=== PATIENT | male | born 1980 | race Caucasian/White ===

== ENCOUNTER 2016-10-02 14:03 | Emergency (ER) | payer MEDICAID ==
[2016-10-02 15:57] LABS: BASO % 0.7 % (0.0-1.0); EOS % 1.2 % (0.0-3.0); LARGE UNSTAINED CELL # 0.1 K/mm3 (0.0-0.4); LARGE UNSTAINED CELL % 2.8 % (0.0-4.0); LYMPH # 0.9 K/mm3 (1.5-4.5); LYMPH % 22.2 % (24.0-44.0); MEAN CORPUSCULAR HEMOGLOBIN 29.7 pg (27.0-33.0); MEAN CORPUSCULAR HGB CONC 35.3 g/dl (32.0-36.5); MEAN CORPUSCULAR VOLUME 84.1 fl (80.0-96.0); MONO # 0.2 K/mm3 (0.0-0.8); MONO % 6.1 % (0.0-5.0); NEUTROPHILS # 2.7 K/mm3 (1.8-7.7); NEUTROPHILS % 67.1 % (36.0-66.0); PLATELET COUNT, AUTOMATED 221 k/mm3 (150-450); RED CELL DISTRIBUTION WIDTH 12.1 % (11.5-14.5)
[2016-10-02 16:13] LABS: ANION GAP 10 MEQ/L (8-16); BLOOD UREA NITROGEN 17 MG/DL (7-18); CALCIUM LEVEL 9.3 MG/DL (8.5-10.1); CARBON DIOXIDE LEVEL 30 MEQ/L (21-32); CHLORIDE LEVEL 103 MEQ/L (98-107); CREATININE FOR GFR 1.14 MG/DL (0.70-1.30); GLOMERULAR FILTRATION RATE > 60.0 (>60); GLUCOSE, FASTING 99 MG/DL (70-105); POTASSIUM SERUM 3.7 MEQ/L (3.5-5.1); SODIUM LEVEL 143 MEQ/L (136-145)
--- NOTE | 2016-10-02 17:10 | EDDOCDS ---
Physician Documentation [facility] Name: Shantanu Dixon Age: 36 yrs Sex: Male : 1980 Arrival Date: 10/02/2016 Time: 14:03 Bed 5 Private MD: Unknown Pcp Disposition: 10/02 16:50 I have independently interviewed and examined the patient, and I agree with the pc investigation, diagnosis and treatment plan as documented by the Resident. Disposition: 10/02/16 16:48 Patient has left against medical advice. Impression: Altered mental status, unspecified. - Patients states they are going to Home/Self Care. - Condition is Unchanged. - Discharge Instructions: Confusion, AMA. Medication Reconciliation, Local Pharmacy Hours form. Follow up: [facility], [facility]; When: Call to arrange an appointment; Reason: Continuance of care. - Problem is new. - Symptoms are unchanged. Historical: - Allergies: Vyvanse (made him feel confused); - Home Meds: 1. Suboxone 8-2 mg SL subl 1 tab once daily 2. adderall 20mg twice a day 3. Wellbutrin 300mg Oral daily 4. levothyroxine 75 mcg oral cap once daily - PMHx: Substance Abuse; Thyroid problem; ADHD; - PSHx: none; - Social history: Smoking status: Patient states was never smoker of tobacco. No barriers to communication noted, The patient speaks fluent Danish, Speaks appropriately for age. - Family history: Not pertinent. - : The pt / caregiver states he / she is not on anticoagulants. Home medication list is obtained from the patient. - Exposure Risk Screening:: None identified. Vital Signs: 14:06 BP 159 / 93; Pulse 71; Resp 20; Temp 95.8; Pulse Ox 99% ; Weight 106.59 kg / 234.99 cmb lbs; Height 6 ft. 0 in. (182.88 cm); 14:06 Body Mass Index 31.87 (106.59 kg, 182.88 cm) cmb MDM: 15:25 CT Head Without Contrast Ordered. EDMS 15:25 CBC with Diff Ordered. EDMS 15:25 BMP Ordered. EDMS 15:25 Drug Eval Toxicology ED Only Ordered. EDMS 15:31 THYROID STIMULATING HORMONE Ordered. EDMS 15:39 Financial registration complete. gjb 16:13 CBC with Diff Reviewed. jo4 16:28 BMP Reviewed. jo4 16:29 THYROID STIMULATING HORMONE Reviewed. jo4 16:36 [facility] Payment Agreement was scanned into [employer] and attached to record. luke Signatures: Dispatcher [employer] EDMS Matthew Coy MD MD pc Michelson, Staci, RN RN Andra Johnson RN RN Jenae Solorzano Jane, DO DO jo4 The chart was reviewed and I authenticate all verbal orders and agree with the evaluation and treatment provided.Corrections: (The following items were deleted from the chart) 14:17 14:14 Allergies: no known allergies; srm srm 14:17 14:14 Home Meds: Wellbutrin Oral daily; srm srm 14:17 14:14 Home Meds: Levothyroxine Oral once daily; srm srm 15:31 15:27 THYROID STIMULATING HORMONE+LAB ordered. EDMS EDMS Attachments: 16:36 [facility] Payment Agreement gjrichie MTDD
--- NOTE | 2016-10-02 17:10 | EDDOCDS ---
Nurse's Notes [facility] Name: Shantanu Dixon Age: 36 yrs Sex: Male : 1980 Arrival Date: 10/02/2016 Time: 14:03 Bed 5 Private MD: Unknown Pcp Diagnosis: Altered mental status, unspecified Presentation: 10/02 14:08 Presenting complaint: Patient states: i feel weak, confused, shakey. off and on since [facility] last week. recently started on adderral. confusion worse since starting that [place] got [place] due to confusion. urine dark in color. pt states hes been having blood in urine and stool for 5 months. syncope at the gym a couple of months ago and was supposed to have EEG but hasnt had f/u. chest pain and SOB for past month- taking a deep breath is difficult. Mental Health Triage Level: Level 1- Pt displays no suicidal or homicidal ideations and does not appear to be a danger to self or others. Adult Sepsis Screening: Patient has new or worsening altered mentation (1 point). Patient's respiratory rate is less than 22. Systolic blood pressure is greater than 100. Patient has a qSOFA score of 0- Negative Sepsis Screen. Suicide/Homicide risk assessment- Patient denies SI and HI but presents with another emotional, behavioral or other mental health complaint. The patient reports that he/she has a recent or current history of substance abuse. Status: Patient is not a patient services technician or dependent. Transition of care: patient was not received from another setting of care. 14:08 Acuity: NICKIE Level 3 [facility] 14:08 Method Of Arrival: Walkin/Carried/Asstd [facility] 14:17 Presenting complaint: Patient states: headaches every day for months. [facility] Triage Assessment: 14:17 General: Appears in no apparent distress, Behavior is appropriate for age, cooperative. srm Pain: Pain currently is 7 out of 10 on a pain scale. Historical: - Allergies: Vyvanse (made him feel confused); - Home Meds: 1. Suboxone 8-2 mg SL subl 1 tab once daily 2. adderall 20mg twice a day 3. Wellbutrin 300mg Oral daily 4. levothyroxine 75 mcg oral cap once daily - PMHx: Substance Abuse; Thyroid problem; ADHD; - PSHx: none; - Social history: Smoking status: Patient states was never smoker of tobacco. No barriers to communication noted, The patient speaks fluent Bulgarian, Speaks appropriately for age. - Family history: Not pertinent. - : The pt / caregiver states he / she is not on anticoagulants. Home medication list is obtained from the patient. - Exposure Risk Screening:: None identified. Screenin:50 Screening information is obtained from the patient. Fall risk: No risks identified. mk4 Assistance ADL's: requires no assistance with activities of daily living. Abuse/DV Screen: The patient / caregiver reports he/she is: not in a situation that causes fear, pain or injury. Nutritional screening: No deficits noted. Advance Directives: Currently, there is no health care proxy. There is no active DNR order. There is no living will. There is no Power of Marketing Assistant Manager. Advance directive information has not previously [facility]. Further advance directive information is declined. home support is adequate. Assessment: 14:45 General: Appears in no apparent distress, Behavior is anxious. mk4 15:50 General: Appears in no apparent distress, pt unable to void at this time. Respiratory: mk4 Airway is patent Respiratory effort is even, unlabored, Respiratory pattern is regular. 16:01 General: Appears in no apparent distress, comfortable, Behavior is cooperative. ml6 Neurological: Level of Consciousness is awake, alert. 16:03 Pain: Denies pain. ml6 16:03 Cardiovascular: Chest pain is denied. ml6 17:08 General: Appears in no apparent distress, Behavior is flat, pt states he is unable to mk4 urinate and would like to leave discussed with and pt leaving ama. Vital Signs: 14:06 BP 159 / 93; Pulse 71; Resp 20; Temp 95.8; Pulse Ox 99% ; Weight 106.59 kg; Height 6 cmb ft. 0 in. (182.88 cm); 14:06 Body Mass Index 31.87 (106.59 kg, 182.88 cm) [facility] Vitals: 14:06 Log In Time: October 02, 2016 at 14:03. [facility] ED Course: 14:05 Patient visited by Isabela Jules. b 14:05 Unknown Pcp is Private Physician. b 14:05 Patient moved to Waiting b 14:07 RN notified that patient meets Red Flag criteria. b 14:12 Triage Initiated srm 14:20 Patient moved to 5 srm 14:27 [facility] jo4 14:27 Matthew Coy MD is Attending Physician. jo4 14:35 Patient visited by Celi Baer DO. jo4 15:07 Patient visited by Andra Petersen RN. mk4 15:35 THYROID STIMULATING HORMONE Sent. ar3 15:35 BMP Sent. ar3 15:35 CBC with Diff Sent. ar3 15:39 Patient visited by Andra Petersen RN. mk4 15:50 The patient / caregiver is instructed regarding the plan of care and ED course. mk4 15:50 No IV's were initiated during this patient's visit. No procedures done that require mk4 assistance. 16:21 Patient visited by Andra Petersen RN. mk4 16:36 [facility] Payment Agreement was scanned into [place] and attached to record. gjb 16:39 Patient name changed from Shantanu\S\\S\Neversink\S\ to Shantanu\S\ \S\Neversink. EDMS 16:46 [facility] is Referral Physician. jo4 Order Results: Lab Order: CBC with Diff; SPEC'M 10/02/16 15:34 Test: WHITE BLOOD COUNT; Value: 4.0; Range: 4.0-10.0; Units: K/mm3; Status: F Test: RED BLOOD COUNT; Value: 4.80; Range: 4.30-6.10; Units: M/mm3; Status: F Test: HEMOGLOBIN; Value: 14.3; Range: 14.0-18.0; Units: g/dl; Status: F Test: HEMATOCRIT; Value: 40.4; Range: 42.0-52.0; Abnormal: Below low normal; Units: %; Status: F Test: MEAN CORPUSCULAR VOLUME; Value: 84.1; Range: 80.0-96.0; Units: fl; Status: F Test: MEAN CORPUSCULAR HEMOGLOBIN; Value: 29.7; Range: 27.0-33.0; Units: pg; Status: F Test: MEAN CORPUSCULAR HGB CONC; Value: 35.3; Range: 32.0-36.5; Units: g/dl; Status: F Test: RED CELL DISTRIBUTION WIDTH; Value: 12.1; Range: 11.5-14.5; Units: %; Status: F Test: PLATELET COUNT, AUTOMATED; Value: 221; Range: 150-450; Units: k/mm3; Status: F Test: NEUTROPHILS %; Value: 67.1; Range: 36.0-66.0; Abnormal: Above high normal; Units: %; Status: F Test: LYMPH %; Value: 22.2; Range: 24.0-44.0; Abnormal: Below low normal; Units: %; Status: F Test: MONO %; Value: 6.1; Range: 0.0-5.0; Abnormal: Above high normal; Units: %; Status: F Test: EOS %; Value: 1.2; Range: 0.0-3.0; Units: %; Status: F Test: BASO %; Value: 0.7; Range: 0.0-1.0; Units: %; Status: F Test: LARGE UNSTAINED CELL %; Value: 2.8; Range: 0.0-4.0; Units: %; Status: F Test: NEUTROPHILS #; Value: 2.7; Range: 1.8-7.7; Units: K/mm3; Status: F Test: LYMPH #; Value: 0.9; Range: 1.5-4.5; Abnormal: Below low normal; Units: K/mm3; Status: F Test: MONO #; Value: 0.2; Range: 0.0-0.8; Units: K/mm3; Status: F Test: EOS #; Value: 0.0; Range: 0.0-0.50; Units: K/mm3; Status: F Test: BASO #; Value: 0.0; Range: 0.0-0.2; Units: K/mm3; Status: F Test: LARGE UNSTAINED CELL #; Value: 0.1; Range: 0.0-0.4; Units: K/mm3; Status: F Lab Order: [facility]; SPEC'M 10/02/16 15:34 Test: GLUCOSE, FASTING; Value: 99; Range: 70-105; Units: MG/DL; Status: F Test: BLOOD UREA NITROGEN; Value: 17; Range: 7-18; Units: MG/DL; Status: F Test: CREATININE FOR GFR; Value: 1.14; Range: 0.70-1.30; Units: MG/DL; Status: F Test: GLOMERULAR FILTRATION RATE; Value: > 60.0; Range: >60; Status: F Test: SODIUM LEVEL; Value: 143; Range: 136-145; Units: MEQ/L; Status: F Test: POTASSIUM SERUM; Value: 3.7; Range: 3.5-5.1; Units: MEQ/L; Status: F Test: CHLORIDE LEVEL; Value: 103; Range: 98-107; Units: MEQ/L; Status: F Test: CARBON DIOXIDE LEVEL; Value: 30; Range: 21-32; Units: MEQ/L; Status: F Test: ANION GAP; Value: 10; Range: 8-16; Units: MEQ/L; Status: F Test: CALCIUM LEVEL; Value: 9.3; Range: 8.5-10.1; Units: MG/DL; Status: F Test Note: ; Units are mL/min/1.73 m2 Chronic Kidney Disease Staging per NKF: Stage I & II GFR >=60 Normal to Mildly Decreased Stage III GFR 30-59 Moderately Decreased Stage IV GFR 15-29 Severely Decreased Stage V GFR <15 Very Little GFR Left ESRD GFR <15 on BEAUTY ARTIST Lab Order: THYROID STIMULATING HORMONE; SPEC'M 10/02/16 15:34 Test: THYROID STIMULATING HORMONE; Value: 2.180; Range: 0.358-3.740; Units: uIU/ML; Status: F Outcome: 16:48 Patient left against medical advice. jo4 17:08 Discharge Assessment: Patient awake, alert and oriented x 3. No cognitive and/or mk4 functional deficits noted. Patient verbalized understanding of disposition instructions. Patient awake and alert. patient administered narcotics - no. The following High Risk Discharge criteria are identified: None. Discharged to home ambulatory, with parent. The patient is leaving AMA: Left before signing form, Notification of AMA status is made to the charge nurse, the social media content manager, the ED attending physician. Condition: stable. CT Study completed. Property sent home with patient. 17:09 Patient left the ED. mk4 Signatures: Dispatcher [facility] EDMS Padmini Disla RN RN srm Lowe, Matthew, RN RN ml6 Tahira Ernst, ENGINEER STEAM ENGINEER STEAM ar3 Isabela Jules Margaret, RN RN mk4 Jenae Escamilla Jane, DO DO jo4 Corrections: (The following items were deleted from the chart) 14:17 14:14 Allergies: no known allergies; srm srm 14:17 14:14 Home Meds: Wellbutrin Oral daily; srm srm 14:17 14:14 Home Meds: Levothyroxine Oral once daily; srm srm MTDD
--- NOTE | 2016-10-02 23:15 | REP ---
CT brain without contrast 10/02/2016 Indication: Confusion Comparison: None Findings: The ventricles are of normal size and configuration. There is no intracranial hemorrhage or extra-axial fluid collection. There is no evidence of cerebral atrophy. There is no midline shift or mass effect. The skull is without fracture. Visualized portions of the paranasal sinuses and mastoid sinuses are clear. Impression 1. Negative CT brain without contrast Signed by Gladys Skinner MD 10/02/2016 11:07 P
--- NOTE | 2016-10-04 18:10 | EDDOCDS ---
Nurse's Notes [facility] Name: Shantanu Dixon Age: 36 yrs Sex: Male : 1980 Arrival Date: 10/02/2016 Time: 14:03 Bed 5 Private MD: Unknown Pcp Diagnosis: Altered mental status, unspecified Presentation: 10/02 14:08 Presenting complaint: Patient states: i feel weak, confused, shakey. off and on since [facility] last week. recently started on adderral. confusion worse since starting that [place] got [place] due to confusion. urine dark in color. pt states hes been having blood in urine and stool for 5 months. syncope at the gym a couple of months ago and was supposed to have EEG but hasnt had f/u. chest pain and SOB for past month- taking a deep breath is difficult. Mental Health Triage Level: Level 1- Pt displays no suicidal or homicidal ideations and does not appear to be a danger to self or others. Adult Sepsis Screening: Patient has new or worsening altered mentation (1 point). Patient's respiratory rate is less than 22. Systolic blood pressure is greater than 100. Patient has a qSOFA score of 0- Negative Sepsis Screen. Suicide/Homicide risk assessment- Patient denies SI and HI but presents with another emotional, behavioral or other mental health complaint. The patient reports that he/she has a recent or current history of substance abuse. Status: Patient is not a account service associate or dependent. Transition of care: patient was not received from another setting of care. 14:08 Acuity: NICKIE Level 3 [facility] 14:08 Method Of Arrival: Walkin/Carried/Asstd [facility] 14:17 Presenting complaint: Patient states: headaches every day for months. [facility] Triage Assessment: 14:17 General: Appears in no apparent distress, Behavior is appropriate for age, cooperative. srm Pain: Pain currently is 7 out of 10 on a pain scale. Historical: - Allergies: Vyvanse (made him feel confused); - Home Meds: 1. Suboxone 8-2 mg SL subl 1 tab once daily 2. adderall 20mg twice a day 3. Wellbutrin 300mg Oral daily 4. levothyroxine 75 mcg oral cap once daily - PMHx: Substance Abuse; Thyroid problem; ADHD; - PSHx: none; - Social history: Smoking status: Patient states was never smoker of tobacco. No barriers to communication noted, The patient speaks fluent British, Speaks appropriately for age. - Family history: Not pertinent. - : The pt / caregiver states he / she is not on anticoagulants. Home medication list is obtained from the patient. - Exposure Risk Screening:: None identified. Screenin:50 Screening information is obtained from the patient. Fall risk: No risks identified. mk4 Assistance ADL's: requires no assistance with activities of daily living. Abuse/DV Screen: The patient / caregiver reports he/she is: not in a situation that causes fear, pain or injury. Nutritional screening: No deficits noted. Advance Directives: Currently, there is no health care proxy. There is no active DNR order. There is no living will. There is no Power of Chemic Mangler. Advance directive information has not previously been placed in an [facility] medical record. Further advance directive information is declined. home support is adequate. Assessment: 14:45 General: Appears in no apparent distress, Behavior is anxious. mk4 15:50 General: Appears in no apparent distress, pt unable to void at this time. Respiratory: mk4 Airway is patent Respiratory effort is even, unlabored, Respiratory pattern is regular. 16:01 General: Appears in no apparent distress, comfortable, Behavior is cooperative. ml6 Neurological: Level of Consciousness is awake, alert. 16:03 Pain: Denies pain. ml6 16:03 Cardiovascular: Chest pain is denied. ml6 17:08 General: Appears in no apparent distress, Behavior is flat, pt states he is unable to mk4 urinate and would like to leave discussed with and pt leaving ama. Vital Signs: 14:06 BP 159 / 93; Pulse 71; Resp 20; Temp 95.8; Pulse Ox 99% ; Weight 106.59 kg; Height 6 cmb ft. 0 in. (182.88 cm); 14:06 Body Mass Index 31.87 (106.59 kg, 182.88 cm) [facility] Vitals: 14:06 Log In Time: October 02, 2016 at 14:03. [facility] ED Course: 14:05 Patient visited by Isabela Jules. b 14:05 Unknown Pcp is Private Physician. b 14:05 Patient moved to Waiting b 14:07 RN notified that patient meets Red Flag criteria. b 14:12 Triage Initiated srm 14:20 Patient moved to 5 srm 14:27 [facility] jo4 14:27 Matthew Coy MD is Attending Physician. jo4 14:35 Patient visited by Celi Baer DO. jo4 15:07 Patient visited by Andra Petersen RN. mk4 15:35 THYROID STIMULATING HORMONE Sent. ar3 15:35 BMP Sent. ar3 15:35 CBC with Diff Sent. ar3 15:39 Patient visited by Andra Petersen RN. mk4 15:50 The patient / caregiver is instructed regarding the plan of care and ED course. mk4 15:50 No IV's were initiated during this patient's visit. No procedures done that require mk4 assistance. 16:21 Patient visited by Andra Petersen RN. mk4 16:36 [id number] Payment Agreement was scanned into [employer] and attached to record. gjb 16:39 Patient name changed from Shantanu\S\\S\Waldron\S\ to Shantanu\S\ \S\Waldron. EDMS 16:46 [facility] is Referral Physician. jo4 10/03 00:15 CT Head Without Contrast Returned. EDMS 09:10 T-Sheet-- Draft Copy was scanned into [employer] and attached to record. gb Order Results: Lab Order: CBC with Diff; SPEC'M 10/02/16 15:34 Test: WHITE BLOOD COUNT; Value: 4.0; Range: 4.0-10.0; Units: K/mm3; Status: F Test: RED BLOOD COUNT; Value: 4.80; Range: 4.30-6.10; Units: M/mm3; Status: F Test: HEMOGLOBIN; Value: 14.3; Range: 14.0-18.0; Units: g/dl; Status: F Test: HEMATOCRIT; Value: 40.4; Range: 42.0-52.0; Abnormal: Below low normal; Units: %; Status: F Test: MEAN CORPUSCULAR VOLUME; Value: 84.1; Range: 80.0-96.0; Units: fl; Status: F Test: MEAN CORPUSCULAR HEMOGLOBIN; Value: 29.7; Range: 27.0-33.0; Units: pg; Status: F Test: MEAN CORPUSCULAR HGB CONC; Value: 35.3; Range: 32.0-36.5; Units: g/dl; Status: F Test: RED CELL DISTRIBUTION WIDTH; Value: 12.1; Range: 11.5-14.5; Units: %; Status: F Test: PLATELET COUNT, AUTOMATED; Value: 221; Range: 150-450; Units: k/mm3; Status: F Test: NEUTROPHILS %; Value: 67.1; Range: 36.0-66.0; Abnormal: Above high normal; Units: %; Status: F Test: LYMPH %; Value: 22.2; Range: 24.0-44.0; Abnormal: Below low normal; Units: %; Status: F Test: MONO %; Value: 6.1; Range: 0.0-5.0; Abnormal: Above high normal; Units: %; Status: F Test: EOS %; Value: 1.2; Range: 0.0-3.0; Units: %; Status: F Test: BASO %; Value: 0.7; Range: 0.0-1.0; Units: %; Status: F Test: LARGE UNSTAINED CELL %; Value: 2.8; Range: 0.0-4.0; Units: %; Status: F Test: NEUTROPHILS #; Value: 2.7; Range: 1.8-7.7; Units: K/mm3; Status: F Test: LYMPH #; Value: 0.9; Range: 1.5-4.5; Abnormal: Below low normal; Units: K/mm3; Status: F Test: MONO #; Value: 0.2; Range: 0.0-0.8; Units: K/mm3; Status: F Test: EOS #; Value: 0.0; Range: 0.0-0.50; Units: K/mm3; Status: F Test: BASO #; Value: 0.0; Range: 0.0-0.2; Units: K/mm3; Status: F Test: LARGE UNSTAINED CELL #; Value: 0.1; Range: 0.0-0.4; Units: K/mm3; Status: F Lab Order: [facility]; SPEC'M 10/02/16 15:34 Test: GLUCOSE, FASTING; Value: 99; Range: 70-105; Units: MG/DL; Status: F Test: BLOOD UREA NITROGEN; Value: 17; Range: 7-18; Units: MG/DL; Status: F Test: CREATININE FOR GFR; Value: 1.14; Range: 0.70-1.30; Units: MG/DL; Status: F Test: GLOMERULAR FILTRATION RATE; Value: > 60.0; Range: >60; Status: F Test: SODIUM LEVEL; Value: 143; Range: 136-145; Units: MEQ/L; Status: F Test: POTASSIUM SERUM; Value: 3.7; Range: 3.5-5.1; Units: MEQ/L; Status: F Test: CHLORIDE LEVEL; Value: 103; Range: 98-107; Units: MEQ/L; Status: F Test: CARBON DIOXIDE LEVEL; Value: 30; Range: 21-32; Units: MEQ/L; Status: F Test: ANION GAP; Value: 10; Range: 8-16; Units: MEQ/L; Status: F Test: CALCIUM LEVEL; Value: 9.3; Range: 8.5-10.1; Units: MG/DL; Status: F Test Note: ; Units are mL/min/1.73 m2 Chronic Kidney Disease Staging per NKF: Stage I & II GFR >=60 Normal to Mildly Decreased Stage III GFR 30-59 Moderately Decreased Stage IV GFR 15-29 Severely Decreased Stage V GFR <15 Very Little GFR Left ESRD GFR <15 on ENGINEERING TECHNOLOGY INSTRUCTOR Lab Order: THYROID STIMULATING HORMONE; SPEC'M 10/02/16 15:34 Test: THYROID STIMULATING HORMONE; Value: 2.180; Range: 0.358-3.740; Units: uIU/ML; Status: F Radiology Order: CT Head Without Contrast Test: CT Head Without Contrast REASON FOR EXAMINATION: Confusion; CT brain without contrast 10/02/2016; ; Indication: Confusion; ; Comparison: None; ; Findings: The ventricles are of normal size and configuration. There is no; intracranial hemorrhage or extra-axial fluid collection. There is no evidence of; cerebral atrophy. There is no midline shift or mass effect.; ; The skull is without fracture. Visualized portions of the paranasal sinuses and; mastoid sinuses are clear.; ; Impression; 1. Negative CT brain without contrast; ; ; Signed by; Gladys Skinner MD 10/02/2016 11:07 P; Outcome: 10/02 16:48 Patient left against medical advice. jo4 17:08 Discharge Assessment: Patient awake, alert and oriented x 3. No cognitive and/or mk4 functional deficits noted. Patient verbalized understanding of disposition instructions. Patient awake and alert. patient administered narcotics - no. The following High Risk Discharge criteria are identified: None. Discharged to home ambulatory, with parent. The patient is leaving AMA: Left before signing form, Notification of AMA status is made to the charge nurse, the court worker, the ED attending physician. Condition: stable. CT Study completed. Property sent home with patient. 17:09 Patient left the ED. mk4 Signatures: Dispatcher [employer] EDMS Padmini Disla, RN RN srm Joanie Walton, Juan Reg Shawn Koch RN RN ml6 Tahira Ernst, EDUCATIONAL INSTITUTION PRESIDENT EDUCATIONAL INSTITUTION PRESIDENT ar3 Isabela Jules Margaret, RN RN mk4 Jenae Escamilla Jane, DO DO jo4 Corrections: (The following items were deleted from the chart) 14:17 14:14 Allergies: no known allergies; srm srm 14:17 14:14 Home Meds: Wellbutrin Oral daily; srm srm 14:17 14:14 Home Meds: Levothyroxine Oral once daily; srm srm Chart Complete MTDD
--- NOTE | 2016-10-04 18:10 | EDDOCDS ---
Physician Documentation [facility] Name: Shantanu Dixon Age: 36 yrs Sex: Male : 1980 Arrival Date: 10/02/2016 Time: 14:03 Bed 5 Private MD: Unknown Pcp Disposition: 10/02 16:50 I have independently interviewed and examined the patient, and I agree with the pc investigation, diagnosis and treatment plan as documented by the Resident. Disposition: 10/02/16 16:48 Patient has left against medical advice. Impression: Altered mental status, unspecified. - Patients states they are going to Home/Self Care. - Condition is Unchanged. - Discharge Instructions: Confusion, AMA. Medication Reconciliation, Local Pharmacy Hours form. Follow up: [facility], [facility]; When: Call to arrange an appointment; Reason: Continuance of care. - Problem is new. - Symptoms are unchanged. Historical: - Allergies: Vyvanse (made him feel confused); - Home Meds: 1. Suboxone 8-2 mg SL subl 1 tab once daily 2. adderall 20mg twice a day 3. Wellbutrin 300mg Oral daily 4. levothyroxine 75 mcg oral cap once daily - PMHx: Substance Abuse; Thyroid problem; ADHD; - PSHx: none; - Social history: Smoking status: Patient states was never smoker of tobacco. No barriers to communication noted, The patient speaks fluent Albanian, Speaks appropriately for age. - Family history: Not pertinent. - : The pt / caregiver states he / she is not on anticoagulants. Home medication list is obtained from the patient. - Exposure Risk Screening:: None identified. Vital Signs: 14:06 BP 159 / 93; Pulse 71; Resp 20; Temp 95.8; Pulse Ox 99% ; Weight 106.59 kg / 234.99 cmb lbs; Height 6 ft. 0 in. (182.88 cm); 14:06 Body Mass Index 31.87 (106.59 kg, 182.88 cm) cmb MDM: 15:25 CT Head Without Contrast Ordered. EDMS 15:25 CBC with Diff Ordered. EDMS 15:25 BMP Ordered. EDMS 15:25 Drug Eval Toxicology ED Only Ordered. EDMS 15:31 THYROID STIMULATING HORMONE Ordered. EDMS 15:39 Financial registration complete. gjb 16:13 CBC with Diff Reviewed. jo4 16:28 BMP Reviewed. jo4 16:29 THYROID STIMULATING HORMONE Reviewed. jo4 16:36 [facility] Payment Agreement was scanned into [employer] and attached to record. [facility] 10/03 09:10 T-Sheet-- Draft Copy was scanned into [employer] and attached to record. gb Signatures: Dispatcher [employer] EDMS Matthew Coy MD MD pc Michelson, Staci, RN RN [facility] Joanie Walton, Reg Reg Andra Petersen RN RN mk4 Beck, Gabriela [facility] Celi Baer DO DO jo4 The chart was reviewed and I authenticate all verbal orders and agree with the evaluation and treatment provided.Corrections: (The following items were deleted from the chart) 10/02 14:17 14:14 Allergies: no known allergies; srm srm 14:17 14:14 Home Meds: Wellbutrin Oral daily; srm srm 14:17 14:14 Home Meds: Levothyroxine Oral once daily; srm srm 15:31 15:27 THYROID STIMULATING HORMONE+LAB ordered. EDMS EDMS Attachments: 16:36 [facility] Payment Agreement [facility] 10/03 09:10 T-Sheet-- Draft Copy gb Chart Complete MTDD
--- NOTE | 2016-10-04 18:10 | EDDOCDS ---
Physician Documentation [facility] Name: Shantanu Dixon Age: 36 yrs Sex: Male : 1980 Arrival Date: 10/02/2016 Time: 14:03 Bed 5 Private MD: Unknown Pcp Disposition: 10/02 16:50 I have independently interviewed and examined the patient, and I agree with the pc investigation, diagnosis and treatment plan as documented by the Resident. Disposition: 10/02/16 16:48 Patient has left against medical advice. Impression: Altered mental status, unspecified. - Patients states they are going to Home/Self Care. - Condition is Unchanged. - Discharge Instructions: Confusion, AMA. Medication Reconciliation, Local Pharmacy Hours form. Follow up: [facility]; When: Call to arrange an appointment; Reason: Continuance of care. - Problem is new. - Symptoms are unchanged. Historical: - Allergies: Vyvanse (made him feel confused); - Home Meds: 1. Suboxone 8-2 mg SL subl 1 tab once daily 2. adderall 20mg twice a day 3. Wellbutrin 300mg Oral daily 4. levothyroxine 75 mcg oral cap once daily - PMHx: Substance Abuse; Thyroid problem; ADHD; - PSHx: none; - Social history: Smoking status: Patient states was never smoker of tobacco. No barriers to communication noted, The patient speaks fluent Urdu, Speaks appropriately for age. - Family history: Not pertinent. - : The pt / caregiver states he / she is not on anticoagulants. Home medication list is obtained from the patient. - Exposure Risk Screening:: None identified. Vital Signs: 14:06 BP 159 / 93; Pulse 71; Resp 20; Temp 95.8; Pulse Ox 99% ; Weight 106.59 kg / 234.99 cmb lbs; Height 6 ft. 0 in. (182.88 cm); 14:06 Body Mass Index 31.87 (106.59 kg, 182.88 cm) cmb MDM: 15:25 CT Head Without Contrast Ordered. EDMS 15:25 CBC with Diff Ordered. EDMS 15:25 BMP Ordered. EDMS 15:25 Drug Eval Toxicology ED Only Ordered. EDMS 15:31 THYROID STIMULATING HORMONE Ordered. EDMS 15:39 Financial registration complete. gjb 16:13 CBC with Diff Reviewed. jo4 16:28 BMP Reviewed. jo4 16:29 THYROID STIMULATING HORMONE Reviewed. jo4 16:36 [facility] Payment Agreement was scanned into [employer] and attached to record. [facility] 10/03 09:10 T-Sheet-- Draft Copy was scanned into [place] [employer] and attached to record. gb Signatures: Dispatcher [employer] EDMS Matthew Coy MD MD pc Michelson, Staci, RN RN [facility] Joanie Walton, Reg Reg Andra Petersen RN RN mk4 Beck, Gabriela [facility] Celi Baer DO DO jo4 The chart was reviewed and I authenticate all verbal orders and agree with the evaluation and treatment provided.Corrections: (The following items were deleted from the chart) 10/02 14:17 14:14 Allergies: no known allergies; srm srm 14:17 14:14 Home Meds: Wellbutrin Oral daily; srm srm 14:17 14:14 Home Meds: Levothyroxine Oral once daily; srm srm 15:31 15:27 THYROID STIMULATING HORMONE+LAB ordered. EDMS EDMS Attachments: 16:36 [facility] Payment Agreement [facility] 10/03 09:10 T-Sheet-- Draft Copy gb Chart Complete MTDD
== END 2016-10-02 17:09 | disposition home or self-care (01) ==
LOC: M ED 14:03
DX: R41.0 Disorientation, unspecified (principal); F19.10 Other psychoactive substance abuse, uncomplicated; E03.9 Hypothyroidism, unspecified; F90.9 Attention-deficit hyperactivity disorder, unspecified type; Z79.899 Other long term (current) drug therapy; Z88.8 Allergy status to other drugs, medicaments and biological substances

== ENCOUNTER 2019-02-17 17:29 | Emergency (ER) | payer MEDICAID ==
[~2019-02-17] VITALS: Ht 188 cm; Wt 102.5 kg
[2019-02-17 17:29] VITALS: BP 167/91
[2019-02-17] MEDS ORDERED: LEVO150T7 (17:47)
[2019-02-17] MEDS ORDERED: BUPR300T34 (17:47)
[2019-02-17] MEDS ORDERED: SUBO8MIS SL (17:47)
[2019-02-17] MEDS ORDERED: AMPH30CA (17:47)
== END 2019-02-17 19:26 | disposition left against medical advice (07) ==
LOC: M ED 17:29
DX: R51 Headache (principal); Z53.21 Procedure and treatment not carried out due to patient leaving prior to being seen by health care provider

== ENCOUNTER 2019-06-16 19:00 | Emergency (ER) | payer MEDICAID, OTHER ==
[~2019-06-16] VITALS: Ht 185.4 cm; Wt 94.5 kg
[~2019-06-16 19:00] MED LIST: AMPH30CA; BUPR300T34; LEVO150T7; SUBO8MIS SL
[2019-06-16] MEDS ORDERED: NS 1,000 ML IV ONE (19:30)
--- NOTE | 2019-06-16 20:00 | REP ---
Portable chest, 07:46 p.m., single AP view with the the patient sitting: There are no comparisons. The lung quintero are clear. The cardiac size is normal. The manolo, mediastinum, and skeletal structures are unremarkable. Impression: Negative portable chest. Electronically Signed by Sean Heredia MD 06/16/2019 07:51 P
[2019-06-16 20:03] LABS: BASO # 0.1 10^3/uL (0.0-0.2); BASO % 0.8 % (0.0-1.0); EOS % 0.5 % (0.0-3.0); HEMATOCRIT 47.9 % (42.0-52.0); HEMOGLOBIN 16.2 g/dl (13.5-17.5); LYMPH # 1.1 10^3/uL (1.5-5.0); LYMPH % 14.2 % (24.0-44.0); MEAN CORPUSCULAR HEMOGLOBIN 27.3 pg (27.0-33.0); MEAN CORPUSCULAR HGB CONC 33.8 g/dl (32.0-36.5); MEAN CORPUSCULAR VOLUME 80.8 fl (80.0-96.0); MONO # 0.9 10^3/uL (0.0-0.8); MONO % 11.3 % (0.0-5.0); NEUTROPHILS # 5.7 10^3/uL (1.5-8.5); NEUTROPHILS % 72.8 % (36.0-66.0); PLATELET COUNT, AUTOMATED 287 10^3/uL (150-450); RED BLOOD COUNT 5.93 10^6/uL (4.30-6.10); WHITE BLOOD COUNT 7.8 10^3/uL (4.0-10.0)
[2019-06-16 20:21] LABS: ALBUMIN 4.2 GM/DL (3.2-5.2); ALT/SGPT 42 U/L (12-78); BILIRUBIN,DIRECT < 0.1 MG/DL (0.0-0.2); BILIRUBIN,TOTAL 0.6 MG/DL (0.2-1.0); BLOOD UREA NITROGEN 17 MG/DL (7-18); CALCIUM LEVEL 9.7 MG/DL (8.5-10.1); CARBON DIOXIDE LEVEL 24 MEQ/L (21-32); CHLORIDE LEVEL 105 MEQ/L (98-107); CREATININE FOR GFR 1.44 MG/DL (0.70-1.30); GLOMERULAR FILTRATION RATE 58.8 (>60); GLUCOSE, FASTING 147 MG/DL (70-100); MAGNESIUM LEVEL 2.3 MG/DL (1.8-2.4); PHOSPHORUS LEVEL 2.4 MG/DL (2.5-4.9); POTASSIUM SERUM 5.2 MEQ/L (3.5-5.1); SODIUM LEVEL 138 MEQ/L (136-145); TOTAL PROTEIN 7.7 GM/DL (6.4-8.2)
[2019-06-16 21:45] LABS: AMPHETAMINES LEVEL URINE NEGATIVE (NEGATIVE); BARBITURATES URINE NEGATIVE (NEGATIVE); BENZODIAZEPINES URINE NEGATIVE (NEGATIVE); CANNABINOIDS URINE NEGATIVE (NEGATIVE); COCAINE METABOLITE URINE NEGATIVE (NEGATIVE); METHADONE URINE NEGATIVE (NEGATIVE); OPIATES URINE NEGATIVE (NEGATIVE); PHENCYCLIDINE URINE NEGATIVE (NEGATIVE)
[2019-06-16] MEDS ORDERED: AUGMENTIN 875 MG TAB PO ONE (22:15)
[2019-06-16] MEDS ORDERED: ACETAMINOPHEN TAB 650MG DOSE (2X325MG) PO ONE (22:15)
[2019-06-16 22:20] VITALS: BP 149/76
--- NOTE | 2019-06-17 20:41 | ECGEPIP ---
[facility] - ED Test Date: 2019-06-16 Pat Name: DENNIS AGUIRRE Department: Room: - Gender: Male Skin Piler: : 1980 Requested By: LOBO Kaiser Order Number: [id number] Reading MD: Lyn Baca Measurements Intervals [place] Rate: 102 P: 62 [place]: 143 QRS: 76 QRSD: 93 T: 39 QT: 323 QTc: 421 Interpretive Statements SINUS TACHYCARDIA ABNORMAL RHYTHM ECG NO PRIOR Electronically Signed on 06-17-2019 20:41:02 EDT by Lyn Baca
== END 2019-06-16 22:40 | disposition home or self-care (01) ==
LOC: M ED 19:00 → EDBD 19:00 → M ED 22:40
DX: R56.9 Unspecified convulsions (principal); H66.92 Otitis media, unspecified, left ear; R00.0 Tachycardia, unspecified; R51 Headache; F41.9 Anxiety disorder, unspecified; E07.9 Disorder of thyroid, unspecified; F90.9 Attention-deficit hyperactivity disorder, unspecified type; Z79.899 Other long term (current) drug therapy

== ENCOUNTER 2020-09-21 14:42 | Emergency (ER) | payer OTHER ==
[~2020-09-21] VITALS: Ht 185.4 cm; Wt 86.6 kg
[~2020-09-21 14:42] MED LIST changes: +AMPH1CAP5; -AMPH30CA; -BUPR300T34; +BUPR300T92
[2020-09-21] MEDS ORDERED: NALOXONE 2MG/2ML SYRINGE (J2310 PER 1MG) IM STA (15:05)
[2020-09-21 15:31] VITALS: BP 149/95
== END 2020-09-21 16:28 | disposition home or self-care (01) ==
LOC: M ED 14:42 → EDBD 14:42 → M ED 16:28
DX: T40.1X1A Poisoning by heroin, accidental (unintentional), initial encounter (principal); Y92.89 Other specified places as the place of occurrence of the external cause; F19.10 Other psychoactive substance abuse, uncomplicated; Z79.899 Other long term (current) drug therapy; Z79.891 Long term (current) use of opiate analgesic
CPT/HCPCS: 96372; 99284; J2310

== ENCOUNTER 2021-02-06 16:10 | Inpatient (IN) | payer OTHER ==
[~2021-02-06] VITALS: Ht 188 cm; Wt 100.0 kg
[~2021-02-06 16:10] MED LIST changes: -LEVO150T7; +LEVO150T7 PO; +VANCOMYCIN HCL 750 MG, VIAL MATE ADAPTER 1 EACH in NS 250 ML IV SCH
[2021-02-06 18:30] VITALS: BP 127/74
[2021-02-06] MEDS ORDERED: ACETAMINOPHEN TAB 650MG DOSE (2X325MG) PO PRN (18:45)
[2021-02-06] MEDS ORDERED: VANCOMYCIN HCL 1,000 MG, VIAL MATE ADAPTER 1 EACH in NS 250 ML IV SCH (19:15)
[2021-02-06 19:24] LABS: HEMATOCRIT 33.2 % (42.0-52.0); HEMOGLOBIN 10.9 g/dl (13.5-17.5); MEAN CORPUSCULAR HEMOGLOBIN 28.2 pg (27.0-33.0); MEAN CORPUSCULAR HGB CONC 32.8 g/dl (32.0-36.5); PLATELET COUNT, AUTOMATED 262 10^3/uL (150-450); RED BLOOD COUNT 3.86 10^6/uL (4.30-6.10); WHITE BLOOD COUNT 14.4 10^3/uL (4.0-10.0)
--- NOTE | 2021-02-06 19:27 | IPNPDOC ---
Text Note Date of Service The patient was seen on 02/06/21. NOTE Time of service 953 pm is a 41 yr old w a hx of anxiety, depression and IVDU who was transferred from [facility] for management of a hand abscess; per d/w we will check xrays of the and wrist, ESR, CRP, Hep C, HIV and start abx. rest per 's H&P LATE ENTRY The patient absconded with his IV; we contacted police to bring him back to the hospital. VS,Fishbone, I+O VS, Fishbone, I+O Laboratory Tests 02/06/21 19:13 Vital Signs Date Time Temp Pulse Resp B/P (MAP) Pulse Ox O2 Delivery O2 Flow Rate FiO2 02/06/21 18:30 100.3 113 20 127/74 (91) 96 Room Air EMILIANO MIRANDA MD February 06, 2021 19:27
[2021-02-06 19:50] LABS: ALBUMIN 2.7 GM/DL (3.2-5.2); ALT/SGPT 49 U/L (12-78); BILIRUBIN,TOTAL 0.5 MG/DL (0.2-1.0); BLOOD UREA NITROGEN 14 MG/DL (7-18); CALCIUM LEVEL 8.6 MG/DL (8.5-10.1); CARBON DIOXIDE LEVEL 30 MEQ/L (21-32); CHLORIDE LEVEL 101 MEQ/L (98-107); CREATININE FOR GFR 0.71 MG/DL (0.70-1.30); GLOMERULAR FILTRATION RATE > 60.0 (>60); GLUCOSE, FASTING 95 MG/DL (70-100); POTASSIUM SERUM 4.2 MEQ/L (3.5-5.1); SODIUM LEVEL 137 MEQ/L (136-145); TOTAL PROTEIN 6.5 GM/DL (6.4-8.2)
[2021-02-06] MEDS ORDERED: ADDE30TA PO (20:30)
[2021-02-06] MEDS ORDERED: SERT50TA29 PO (20:32)
[2021-02-06] MEDS ORDERED: PIPERACILLIN/TAZOBACTAM SOD 4.5 GM in D5W MINI-BAG PLUS 50 ML IV SCH (21:00)
[2021-02-06] MEDS ORDERED: KETOROLAC 30 MG/ML 1ML VIAL IV PRN (21:35)
[2021-02-06] MEDS ORDERED: ALPRAZolam 0.25 MG TAB PO PRN (21:50)
[2021-02-06 22:00] VITALS: BP 144/88
[2021-02-06] MEDS ORDERED: VANCOMYCIN HCL 1,000 MG, VIAL MATE ADAPTER 1 EACH in NS 250 ML IV ONE ×2 (22:00→23:00)
[2021-02-06 22:34] LABS: C REACTIVE PROTEIN QUANTITATIV 8.71 MG/DL (0.00-0.30)
--- NOTE | 2021-02-06 22:42 | REPVR ---
PROCEDURE INFORMATION: Exam: XR Right Hand Exam date and time: 02/06/2021 8:34 PM Age: 41 years old Clinical indication: Pain; Hand and wrist; Right; Additional info: Abscess from ivdu TECHNIQUE: Imaging protocol: XR Right hand. Views: 3 or more views. COMPARISON: No relevant prior studies available. FINDINGS: Bones/joints: Relatively short 4th metacarpal which may be developmental. No fracture. Soft tissues: Soft tissue swelling diffusely. IMPRESSION: 1. Diffuse soft tissue swelling. 2. Relatively short 4th metacarpal which may be developmental. 3. Otherwise negative right hand. Electronically signed by: Milton Dominique On 02/06/2021 22:41:39 PM
[2021-02-06 22:48] LABS: ERYTHROCYTE SEDIMENTATION RATE 41 mm/hr (0-15)
[2021-02-07] MEDS ORDERED: VANCOMYCIN HCL 750 MG, VIAL MATE ADAPTER 1 EACH in NS 250 ML IV SCH ×2 (04:00→05:00)
--- NOTE | 2021-02-07 04:02 | DS.PDOC ---
Discharge Summary General Date of Admission February 06, 2021 at 18:20 Date of Discharge Feb 08 2020 Primary Care Physician: A Specialist/Consultants Involve: HIMANSHU DURAND MD Discharge Summary PROCEDURES PERFORMED DURING STAY: [None]. ADMITTING DIAGNOSES: 1. Right hand abscess DISCHARGE DIAGNOSES: 1. Right hand abscess 2. LEft AMA COMPLICATIONS/CHIEF COMPLAINT: hand pain HISTORY OF PRESENT ILLNESS: is a 41 yr old w a hx of anxiety, depression and IVDU who presented to [facility] w c/o hand pain after IVDU; he was diagnosed w a hand abscess and transferred from [facility] for a higher level of care. HOSPITAL COURSE: Per d/w we ordered xrays of the and wrist, ESR, CRP, Hep C, HIV and start abx; shortly after this the patient absconded with his IV access still in place. Because he has a central line and we were concerned that he may overdose on drugs we called the police to escort him back to the hospital. He was in the ER for a short period of time then transferred back up to [address] [place] [address]. Shortly after midnight he insisted on leaving AMA; his lines were removed. DISCHARGE MEDICATIONS: Please see below. ALLERGIES: Please see below. PHYSICAL EXAMINATION ON DISCHARGE: VITAL SIGNS: Please see below. GENERAL: agitated LABORATORY DATA: Please see below. IMAGING: see H&P PROGNOSIS: poor ACTIVITY: [As tolerated]. DISCHARGE PLAN: AMA DISPOSITION: 07 Against Medical Advice. TIME SPENT ON DISCHARGE: approximately 5 min Vital Signs/I&Os Vital Signs Date Time Temp Pulse Resp B/P (MAP) Pulse Ox O2 Delivery O2 Flow Rate FiO2 02/06/21 22:00 110 20 144/88 (106) 97 Room Air 02/06/21 18:30 100.3 I&O- Last 24 Hours up to 6 AM 02/07/21 06:00 Intake Total 200 ml Balance 200 ml Laboratory Data Labs 24H Laboratory Tests 2 02/06/21 19:13: Nucleated Red Blood Cells % (auto) 0.0, Erythrocyte Sedimentation Rate 41H, Anion Gap 6L, Glomerular Filtration Rate > 60.0, Lactic Acid Level 1.5, Calcium Level 8.6, Total Bilirubin 0.5, Aspartate Amino Transf (AST/SGOT) 40H, Alanine Aminotransferase (ALT/SGPT) 49, Alkaline Phosphatase 84, C-Reactive Protein, Quantitative 8.71H, Total Protein 6.5, Albumin 2.7L, Albumin/Globulin Ratio 0.7 CBC/BMP Laboratory Tests 02/06/21 19:13 Microbiology Microbiology 02/06/21 Blood Culture, Received Pending 02/06/21 Blood Culture, Received Pending Discharge Medications Scheduled Buprenorphine HCl/Naloxone HCl (Suboxone 8 mg-2 mg Sl Film) 1 Each Film, 2 STRIP SL DAILY, (Reported) Dextroamphetamine/Amphetamine (Adderall 30 mg Tablet) 30 Mg Tablet, 30 MG PO BID, (Reported) 2ND DOSE IN AFTERNOON Levothyroxine Sodium (Levothyroxine Sodium) 150 Mcg Tablet, 150 MCG PO DAILY, (Reported) Sertraline HCl (Sertraline HCl) 50 Mg Tablet, 50 MG PO DAILY, (Reported) Allergies Coded Allergies: No Known Allergies (Unverified , 06/16/19) EMILIANO MIRANDA MD February 07, 2021 04:02
--- NOTE | 2021-02-07 04:32 | HPEPDOC ---
[facility] Medical History & Physical Date of Admission February 06, 2021 Date of Service: February 06, 2021 Attending Physician: EMILIANO MIRANDA MD History and Physical CHIEF COMPLAINT: Rt hand swelling, abscess. HISTORY OF PRESENT ILLNESS: Patient is a 41-year-old male with a past medical history of IV drug abuse(on Suboxone ) and hypothyroidism who was a direct admit from [facility] for right handed abscess and cellulitis after he injected synthetic Anita directly into his hand, missing a vein week and a half ago. Patient states having immediate excruciating pain which she was able to tolerate but in the progressive TIAs his hand started becoming bigger, redder causing the pain to go out of proportion which prompted him to go to [facility]. -Patient was found to have an oral temperature of 100.3, pulse of 113, respiratory rate of 20, blood pressure 127/74 pulse oximetry 96 on room air. Patient has terrible IV access so a central line was put in, and incision and drainage was attempted but to no avail. Patient was transferred to [facility] for specialized care. Patient denies any neurovascular compromise, in the right hand, numbness tingling or loss of sensation fevers chills. PAST MEDICAL HISTORY: 1. Drug dependance. PAST SURGICAL HISTORY: None SOCIAL HISTORY: Tobacco use: Never ETOH: Occasional Illicit drug use: IV Anita, denies any other substance abuse. Tattoos done unprofessionally: None. IV drug use: IV Anita FAMILY HISTORY: Father: Lung cancer with metastases to the brain and bone - Mother: Unremarkable ALLERGIES: Please see below. REVIEW OF SYSTEMS: CONSTITUTIONAL: Denies fevers, chills, unintentional weight loss, night sweats. HEENT: Denies I. Ear pain, any lumps or bumps, sore throat, runny nose. CARDIOVASCULAR: Denies chest pain, orthopnea, PND. RESPIRATORY: Denies shortness of breath, cough, pleuritic pain. GASTROINTESTINAL: Denies nausea vomiting constipation diarrhea. GENITOURINARY: Denies burning in urination. SKIN: Denies any bleeding or bruising. Reports redness and swelling of the right hand. MUSCULOSKELETAL: Denies any joint pain or stiffness. NEUROLOGICAL: Denies paresthesias, numbness, loss of bowel or. PSYCHIATRIC: Denies anxiety, depression. HEMATOLOGIC/LYMPHATIC: And his bleeding bruising, lumps or bumps. HOME MEDICATIONS: Please see below. PHYSICAL EXAMINATION: VITAL SIGNS: Temperature 100.3, pulse 110, respiratory rate 20, blood pressure 144/88, pulse oximetry 97 % on room air. GENERAL APPEARANCE: Patient looks anxious, pacing in the room ,ready to leave. HEENT: Atraumatic normocephalic, moist mucous membranes, PERRLA, EOMI, no conjunctival pallor, no scleral icterus. CARDIOVASCULAR: Normal rate, regular rhythm S1-S2 heard with no murmurs. LUNGS: Clear to auscultation bilaterally, no wheezing/crackles. ABDOMEN: Nondistended nontender, no organomegaly, hyperactive bowel sounds. MUSCULOSKELETAL: No joint deformity/stiffness. EXTREMITIES: Good for him pulse, no pedal edema. NEUROLOGICAL: 5.over 5 motor strength, sensations intact cranial nodes to 12 intact PSYCHIATRIC: Anxious, not making eye contact, avoidant personality. LABORATORY DATA: See below. IMAGING: X-ray of his right hand done on 02/07/2021 shows soft tissue swelling, developmental shortening of his forced metacarpal bone with no other abnormalities. MICROBIOLOGY: Please see below. ASSESSMENT AND PLAN: Patient is a 41-year-old male with a past medical history of IV drug abuse(on Suboxone ) and hypothyroidism who was a direct admit from [facility] for right handed abscess and cellulitis after he injected synthetic Anita directly into his hand, missing a vein week and a half ago. P atient states having immediate excruciating pain which she was able to tolerate but in the progressive TIAs his hand started becoming bigger, redder causing the pain to go out of proportion which prompted him to go to [facility]. -Patient was found to have an oral temperature of 100.3, pulse of 113, respiratory rate of 20, blood pressure 127/74 pulse oximetry 96 on room air. Patient has terrible IV access so a central line was put in, and incision and drainage was attempted but to no avail. Patient was transferred to [facility] for specialized care. #sepsis 2/2 Right hand cellulitis and abscess, status post injecting nonsteroidal needle to inject synthetic Anita: -Continuous monitoring of vitals. -Further lab work was done to rule out sepsis, osteomyelitis of the metacarpal bones. -Patient was started on IV fluids., IV Zosyn, IV vancomycin to cover empirically for any underlying infection -Blood cultures were orderedresults pending. -Due to his history of IV drug abuse and echocardiogram was ordered, HIV, hepatitis panel was ordered -Proper pain control using acetaminophen and Toradol. -1 dose of Xanax was given to control his anxiety. -Patient will need referral to orthopedic surgery for specialized care or a referral to a hand surgeon in [place]. #Hypothyroidism: -Continue patient's home dose of levothyroxine 150 g per oral daily Patient has been pointing towards and sending signals that he might want to leave AMA with his central line on. So far the patient was convinced to stay but I'm not too positive. Patient has been told that leaving AMA maybe to spreading of infection to his blood, bones, heart valves which may lead to amputation of his hand, sepsis or . Patient verbalized understanding. DVT prophylaxis: 5000 international units subcutaneous heparin every 8 hours. Vital Signs Vital Signs Date Time Temp Pulse Resp B/P (MAP) Pulse Ox O2 Delivery O2 Flow Rate FiO2 02/06/21 18:30 100.3 113 20 127/74 (91) 96 Room Air Laboratory Data Labs 24H Laboratory Tests 2 02/06/21 19:13: Nucleated Red Blood Cells % (auto) 0.0, Anion Gap 6L, Glomerular Filtration Rate > 60.0, Lactic Acid Level 1.5, Calcium Level 8.6, Total Bilirubin 0.5, Aspartate Amino Transf (AST/SGOT) 40H, Alanine Aminotransferase (ALT/SGPT) 49, Alkaline Phosphatase 84, Total Protein 6.5, Albumin 2.7L, Albumin/Globulin Ratio 0.7 CBC/BMP Laboratory Tests 02/06/21 19:13 Microbiology Microbiology 02/06/21 Blood Culture, Received Pending 02/06/21 Blood Culture, Received Pending Home Medications Scheduled Buprenorphine HCl/Naloxone HCl (Suboxone 8 mg-2 mg Sl Film) 1 Each Film, 2 STRIP SL DAILY Dextroamphetamine/Amphetamine (Adderall 30 mg Tablet) 30 Mg Tablet, 30 MG PO BID 2ND DOSE IN AFTERNOON Levothyroxine Sodium (Levothyroxine Sodium) 150 Mcg Tablet, 150 MCG PO DAILY Sertraline HCl (Sertraline HCl) 50 Mg Tablet, 50 MG PO DAILY Allergies Coded Allergies: No Known Allergies (Unverified , 06/16/19) A-FIB/CHADSVASC A-FIB History Current/History of A-Fib/PAF?: No Current PO Anticoag Therapy: No Age/Risk Factor Scoring CHADSVASC: CHADSVASC Response (Comments) Value Age Risk Factor Age < 65 years old 0 Gender Risk Factor Male 0 Hx of CHF No 0 Hx of HTN No 0 Hx of Stroke/TIA/or VTE No 0 Hx of Diabetes No 0 Hx of Vascular Disease No 0 Total 0 Treatment Treatment ordered: NONE Reason Anticoagulant not given: Not indicated/[id number] GME ATTESTATION GME ATTESTATION My faculty preceptor for this patient encounter was physically present during the encounter and was fully available. All aspects of the patient interview, examination, medical decision making process, and medical care plan development were reviewed and approved by the faculty preceptor. The faculty preceptor is aware and concurs with the plan as stated in the body of this note and will attest to such by his/her cosignature. Cedrick Stack MD February 06, 2021 22:14 EMIILANO MIRANDA MD February 07, 2021 05:54
[2021-02-07] MEDS ORDERED: HEPARIN SOD (PORCINE) 5000UNITS/ML 1ML VIAL/SYRINGE SC SCH (06:00)
[2021-02-07] MEDS ORDERED: LEVOTHYROXINE 150MCG TABLET (0.15MG) PO SCH (06:00)
[2021-02-07] MEDS ORDERED: ADDERALL 5 MG TAB PO SCH (08:00)
[2021-02-07] MEDS ORDERED: SERTRALINE HCL 50 MG TAB PO SCH (09:00)
[2021-02-07] MEDS ORDERED: BUPRENORPHINE/NALOXONE 8-2MG SUBLINGUAL TABLET(SUBOXONE) SL SCH (09:00)
[2021-02-07 10:38] LABS: HEPATITIS B SURFACE ANTIGEN NEGATIVE (NEGATIVE)
[2021-02-07 11:06] LABS: HEPATITIS B CORE ANTIBODY IGM NEGATIVE (NEGATIVE)
[2021-02-07 11:07] LABS: HIV 1&2 SCREEN CENTAUR NEGATIVE (NEGATIVE)
[2021-02-07 11:08] LABS: HEPATITIS A ANTIBODY IGM NEGATIVE (NEGATIVE)
[2021-02-07 11:16] LABS: HEPATITIS C VIRUS ABY INDEX > 11.0 INDEX (<0.8)
[2021-02-08] MEDS ORDERED: ACET-897 PO (02:53)
[2021-02-08] MEDS ORDERED: BACT800T5 PO (02:53)
== END 2021-02-07 01:15 | disposition left against medical advice (07) | DRG 383 ==
LOC: M MS5PR 18:20
PROVIDERS: ADMIT Internal Medicine; ATTEND Internal Medicine
DX: L02.511 Cutaneous abscess of right hand (principal); F11.20 Opioid dependence, uncomplicated; L03.115 Cellulitis of right lower limb; E03.9 Hypothyroidism, unspecified; F41.9 Anxiety disorder, unspecified; F32.9 Major depressive disorder, single episode, unspecified; Z79.899 Other long term (current) drug therapy

== ENCOUNTER 2021-02-07 22:39 | Emergency (ER) | payer OTHER ==
[~2021-02-07] VITALS: Ht 188 cm; Wt 90.7 kg
[~2021-02-07 22:39] MED LIST changes: +ADDE30TA PO; +SERT50TA29 PO; -VANCOMYCIN HCL 750 MG, VIAL MATE ADAPTER 1 EACH in NS 250 ML IV SCH
[2021-02-08 01:25] LABS: BASO # 0.1 10^3/uL (0.0-0.2); BASO % 0.7 % (0.0-1.0); EOS # 0.2 10^3/uL (0.0-0.5); EOS % 1.4 % (0.0-3.0); HEMATOCRIT 34.7 % (42.0-52.0); HEMOGLOBIN 11.5 g/dl (13.5-17.5); LYMPH # 1.4 10^3/uL (1.5-5.0); LYMPH % 13.1 % (24.0-44.0); MEAN CORPUSCULAR HEMOGLOBIN 28.1 pg (27.0-33.0); MEAN CORPUSCULAR HGB CONC 33.1 g/dl (32.0-36.5); MEAN CORPUSCULAR VOLUME 84.8 fl (80.0-96.0); MONO # 0.8 10^3/uL (0.0-0.8); NEUTROPHILS # 7.9 10^3/uL (1.5-8.5); NEUTROPHILS % 75.8 % (36.0-66.0); PLATELET COUNT, AUTOMATED 296 10^3/uL (150-450); RED BLOOD COUNT 4.09 10^6/uL (4.30-6.10); WHITE BLOOD COUNT 10.4 10^3/uL (4.0-10.0)
[2021-02-08 01:45] LABS: BLOOD UREA NITROGEN 17 MG/DL (7-18); CALCIUM LEVEL 9.6 MG/DL (8.5-10.1); CARBON DIOXIDE LEVEL 32 MEQ/L (21-32); CHLORIDE LEVEL 98 MEQ/L (98-107); CREATININE FOR GFR 0.72 MG/DL (0.70-1.30); GLOMERULAR FILTRATION RATE > 60.0 (>60); GLUCOSE, FASTING 87 MG/DL (70-100); POTASSIUM SERUM 4.4 MEQ/L (3.5-5.1); SODIUM LEVEL 135 MEQ/L (136-145)
[2021-02-08 01:50] LABS: ERYTHROCYTE SEDIMENTATION RATE 65 mm/hr (0-15)
[2021-02-08] MEDS ORDERED: BACTRIM 160MG/800MG DS TAB PO ONE (02:25)
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
--- NOTE | 2021-02-08 02:42 | REPVR ---
PROCEDURE INFORMATION: Exam: CT Maxillofacial Without Contrast Exam date and time: 02/08/2021 1:45 AM Age: 41 years old Clinical indication: Mass, lump, or swelling; Other: Lt orbit; Additional info: Ecchymosis left orbit, ttp, mult abrasions TECHNIQUE: Imaging protocol: Computed tomography images of the face without contrast. Radiation optimization: All CT scans at this facility use at least one of these dose optimization techniques: automated exposure control; mA and/or kV adjustment per patient size (includes targeted exams where dose is matched to clinical indication); or iterative reconstruction. COMPARISON: CT Head without contrast 06/16/2019 7:32 PM FINDINGS: Left periorbital and infraorbital soft tissue edema/hematoma is present. Mandible is intact and the TMJ's align normally. Maxilla, hard palate and pterygoid plates are intact. Zygomaticomaxillary complexes and zygomatic arches appear normal. Paranasal sinuses show no acute fracture. Paranasal sinuses show no abnormal opacification. Mastoid air cells and middle ear spaces are normally aerated. No acute orbital fracture. Orbital soft tissues are unremarkable. No acute nasal bone or nasal septal fracture. Visualized skull base structures are unremarkable. Posterior nasopharynx soft tissues are symmetric. IMPRESSION: Left periorbital and infraorbital facial soft tissue swelling No acute facial fracture. Electronically signed by: Michael Glover On 02/08/2021 02:41:48 AM
[2021-02-08] MEDS ORDERED: ACETAMINOPHEN 500 MG TAB PO ONE (02:45)
[2021-02-08] MEDS ORDERED: ACET-897 PO (02:53)
[2021-02-08] MEDS ORDERED: BACT800T5 PO (02:53)
[2021-02-08 02:54] VITALS: BP 124/73
== END 2021-02-08 03:25 | disposition home or self-care (01) ==
LOC: M ED 22:39
DX: L02.511 Cutaneous abscess of right hand (principal); S00.03XA Contusion of scalp, initial encounter; X58.XXXA Exposure to other specified factors, initial encounter; Y92.89 Other specified places as the place of occurrence of the external cause; Y93.89 Activity, other specified; Y99.8 Other external cause status; H05.222 Edema of left orbit; I10 Essential (primary) hypertension; B19.9 Unspecified viral hepatitis without hepatic coma; F41.9 Anxiety disorder, unspecified; F33.9 Major depressive disorder, recurrent, unspecified; Z21 Asymptomatic human immunodeficiency virus [HIV] infection status; Z79.890 Hormone replacement therapy; Z79.899 Other long term (current) drug therapy; Z87.2 Personal history of diseases of the skin and subcutaneous tissue

== ENCOUNTER → 2021-02-23 | Outpatient (REF) | payer OTHER ==
[~2021-02-23] MED LIST changes: +ACET-897 PO; +BACT800T5 PO
== END ==
LOC: M SFHCPLAZ 09:36
PROVIDERS: ATTEND Internal Medicine Infectious Disease
DX: L03.113 Cellulitis of right upper limb (principal); R76.8 Other specified abnormal immunological findings in serum

== ENCOUNTER 2021-03-26 12:14 | Emergency (ER) | payer OTHER ==
[~2021-03-26] VITALS: Ht 185.4 cm; Wt 97.7 kg
[2021-03-26 12:14] VITALS: BP 142/94
[2021-03-26] MEDS ORDERED: BUSP10TA (12:34)
[2021-03-26] MEDS ORDERED: LIDOCAINE 1% MDV 20ML VIAL SC ONE (13:10)
[2021-03-26] MEDS ORDERED: BOOSTRIX/ADACEL VACCINE (DIPHTH/PERTUSS/ACELL/TETANUS) 0.5ML SYR IM ONE (13:15)
[2021-03-26] MEDS ORDERED: CEPH500C PO (14:32)
[2021-03-26] MEDS ORDERED: LEVO750T13 PO (14:32)
--- NOTE | 2021-03-26 14:57 | REP ---
INDICATION: fish hook removal R foot COMPARISON: None. TECHNIQUE: AP, lateral, bilateral oblique views right foot. FINDINGS: The osseous structures and joint spaces are intact and normal. There is no evidence for acute fracture or dislocation. Surrounding soft tissues are unremarkable. No subcutaneous emphysema or radiodense foreign body. IMPRESSION: No subcutaneous emphysema or foreign body. <Electronically signed by Madi Sandra > 03/26/21 [id number]
== END 2021-03-26 14:28 | disposition left against medical advice (07) ==
LOC: M ED 12:14
DX: S90.851A Superficial foreign body, right foot, initial encounter (principal); W45.8XXA Other foreign body or object entering through skin, initial encounter; Y92.098 Other place in other non-institutional residence as the place of occurrence of the external cause; Y93.89 Activity, other specified; Y99.8 Other external cause status; F90.9 Attention-deficit hyperactivity disorder, unspecified type; E03.9 Hypothyroidism, unspecified; G40.909 Epilepsy, unspecified, not intractable, without status epilepticus; F41.9 Anxiety disorder, unspecified; F32.9 Major depressive disorder, single episode, unspecified; F19.10 Other psychoactive substance abuse, uncomplicated; M54.9 Dorsalgia, unspecified; Z79.899 Other long term (current) drug therapy

== ENCOUNTER → 2021-10-24 | Outpatient (REF) | payer OTHER ==
[~2021-10-24] MED LIST changes: +BUSP10TA; +CEPH500C PO; +LEVO750T13 PO
== END ==
LOC: M SFHCCLAY 15:01
PROVIDERS: ATTEND Family Medicine
DX: E03.9 Hypothyroidism, unspecified (principal); Z53.9 Procedure and treatment not carried out, unspecified reason

== ENCOUNTER → 2022-08-17 | Outpatient (REF) | payer OTHER ==
[~2022-08-17] MED LIST changes: +LEVO1TAB40 PO; -LEVO750T13 PO
[2022-08-17 18:41] LABS: BASO # 0.1 10^3/uL (0.0-0.2); BASO % 1.1 % (0.0-1.0); EOS # 0.1 10^3/uL (0.0-0.5); EOS % 2.1 % (0.0-3.0); HEMATOCRIT 40.7 % (42.0-52.0); HEMOGLOBIN 12.8 g/dl (13.5-17.5); LYMPH # 1.5 10^3/uL (1.5-5.0); LYMPH % 31.4 % (24.0-44.0); MEAN CORPUSCULAR HGB CONC 31.4 g/dl (32.0-36.5); MEAN CORPUSCULAR VOLUME 82.6 fl (80.0-96.0); MONO # 0.6 10^3/uL (0.0-0.8); MONO % 11.7 % (2.0-8.0); NEUTROPHILS # 2.5 10^3/uL (1.5-8.5); NEUTROPHILS % 53.5 % (36.0-66.0); PLATELET COUNT, AUTOMATED 321 10^3/uL (150-450); RED BLOOD COUNT 4.93 10^6/uL (4.30-6.10); WHITE BLOOD COUNT 4.7 10^3/uL (4.0-10.0)
[2022-08-17 19:27] LABS: ERYTHROCYTE SEDIMENTATION RATE 43 mm/hr (0-15)
[2022-08-17 19:45] LABS: ALBUMIN 3.4 G/DL (3.2-5.2); ALKALINE PHOSPHATASE 98 U/L (46-116); ALT/SGPT 65 U/L (7.0-40); AST/SGOT 44 U/L (<34); BILIRUBIN,TOTAL 0.3 MG/DL (0.3-1.2); BLOOD UREA NITROGEN 19 MG/DL (9-23); CARBON DIOXIDE LEVEL 24 MMOL/L (20-31); CHLORIDE LEVEL 103 MMOL/L (98-107); CREATININE FOR GFR 0.74 MG/DL (0.70-1.30); GLOMERULAR FILTRATION RATE > 60.0 (>60); GLUCOSE, FASTING 97 MG/DL (60-100); HEPATITIS B SURFACE ANTIBODY NEGATIVE (POSITIVE); POTASSIUM SERUM 4.4 MMOL/L (3.5-5.1); SODIUM LEVEL 137 MMOL/L (136-145); TOTAL PROTEIN 7.8 G/DL (5.7-8.2)
== END ==
LOC: M SFHCPLAZ 17:28
PROVIDERS: ATTEND Internal Medicine Infectious Disease
DX: L03.113 Cellulitis of right upper limb (principal); R78.6 Finding of steroid agent in blood

== ENCOUNTER → 2022-08-17 | Outpatient (REF) | payer OTHER ==
[2022-08-17 19:20] LABS: THYROID STIMULATING HORMONE 2.765 uIU/ML (0.55-4.78)
[2022-08-17 20:38] LABS: FREE T4 1.27 NG/DL (0.89-1.76)
== END ==
LOC: M SFHCCLAY 11:02
PROVIDERS: ATTEND Nurse Practitioner Family
DX: E03.9 Hypothyroidism, unspecified (principal)

== ENCOUNTER → 2024-06-04 | Outpatient (REF) | payer OTHER ==
[~2024-06-04] MED LIST changes: +BUPR-597; -BUPR300T92
[2024-06-04 14:05] LABS: Trichomonas vaginalis (AMP) NOT DETECTED (NEGATIVE)
[2024-06-04 14:29] LABS: GC DNA AMPLIFICATION NEGATIVE (NEGATIVE)
== END ==
LOC: M SFHCCLAY 09:47
PROVIDERS: ATTEND Physician Assistant
DX: Z11.3 Encounter for screening for infections with a predominantly sexual mode of transmission (principal)

== ENCOUNTER → 2024-06-16 | Outpatient (REF) | payer OTHER | LOC: M SFHCCLAY 13:23 | PROVIDERS: ATTEND Physician Assistant | DX: E03.9 Hypothyroidism, unspecified (principal) ==